=== PATIENT | male | born 1945 | race Caucasian/White ===

== ENCOUNTER 2020-01-26 11:41 | Inpatient (IN) | payer OTHER, MEDICARE ==
[~2020-01-26 11:41] MED LIST: Iopamidol 370 76% 100 ML VIAL ONE
[2020-01-26] MEDS ORDERED: Fentanyl 100 MCG/2 ML VIAL ONE ×3 (11:54→15:53)
[2020-01-26] MEDS ORDERED: Ondansetron PF 4 MG/2 ML Vial ONE ×2 (11:54→17:31)
[2020-01-26 12:34] LABS: #Basophils 0.1 thou/uL (0.0-0.2); #Eosinphils 0.1 thou/uL (0.0-0.7); #Lymphocytes 1.6 thou/uL (1.20-3.40); #Neutrophils 10.6 thou/uL (1.40-6.50); %Basophils 0.6 % (0.0-1.0); %Lymphocytes 12.2 % (21.0-51.0); %Monocytes 7.1 % (0.0-10.0); %Neutrophils 79.1 % (42.0-75.0); Hemoglobin 15.1 g/dL (14.0-18.0); Mean Corpuscular HGB CONC 34.1 g/dL (32.0-36.0); Mean Corpuscular Volume 90.7 fL (78.0-98.0); Mean Platelet Volume 9.3 fL (7.4-10.4); Platelet Count 119 thou/uL (130-400); RBC Distribution Width 12.1 % (11.5-14.5); Red Blood Cell (RBC) Count 4.87 mill/uL (4.70-6.10); White Blood Cell (WBC) Count 13.4 thou/uL (4.8-10.8)
[2020-01-26 12:40] LABS: ALT (SGPT) 28 U/L (8-55); AST (SGOT) 32 U/L (5-34); Albumin 4.3 g/dL (3.4-4.8); Alkaline Phosphatase 84 U/L (40-110); Anion Gap 17 mmol/L (10-20); BUN (Urea Nitrogen) 28 mg/dL (8.4-25.7); Bilirubin, Total 0.8 mg/dL (0.2-1.2); Calc. Creatinine Clearance 0 mL/min (70-130); Calcium 9.1 mg/dL (7.8-10.44); Carbon Dioxide 22 mmol/L (23-31); Chloride 104 mmol/L (98-107); Globulin 2.6 g/dL (2.4-3.5); Glucose 208 mg/dL (83-110); Protein, Total 6.9 g/dL (5.8-8.1); Sodium 139 mmol/L (136-145)
[2020-01-26 12:49] LABS: Platelet Morphology Comment Appears Decreased; RBC Morphology Normal
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
[2020-01-26 13:43] LABS: PTT 29.8 sec (22.9-36.1); Prothrombin Time 13.7 sec (12.0-14.7)
--- NOTE | 2020-01-26 13:52 | CT ---
CTA NECK WITH IV CONTRAST AND 3D POST PROCESSING: FINDINGS: There are vascular calcifications with moderate stenosis in the proximal right ICA and severe stenosi s in the proximal left ICA. There is normal flow in the left vertebral artery. There is absence of flow in multiple segments of the right vertebral artery in the neck with absence of flow at the origin. Soft tissue densities are seen in the right cervical transverse foramen. The re is hematoma in the right lower neck and mediastinum. Intracranial flow is demonstrated in the right vertebral artery. There are fractures involving the anterior inferior aspect of C6, spinous process of C6, right transv erse process of T7, and bilateral 1st and 2nd ribs. Right-sided facial fractures are present. IMPRESSION: Findings are highly suspicious for right vertebral artery injury. Discussed over the telephone with ER physician, Dr. Jv Hallman, at 1:17 p.m. ELMER CARDOZO POS: MARY
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
[2020-01-26] MEDS ORDERED: traMADol HCl 50 MG TAB PO PRN ×2 (19:11)
[2020-01-26] MEDS ORDERED: Acetaminophen 500 MG TAB PO SCH (19:15)
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
[2020-01-26] MEDS ORDERED: Acetaminophen 500 MG TAB ONE (19:31)
[2020-01-26] MEDS ORDERED: traMADol HCl 50 MG TAB ONE ×2 (19:31→19:37)
[2020-01-26 19:52] LABS: SARS-CoV-2 MS2 Positive; SARS-CoV-2 N Gene Negative; SARS-CoV-2 S Gene Negative; SARS-CoV-2 by NAA Not Detected (NotDetected); SARS-CoV-2 orf1ab Negative
[2020-01-27] MEDS ORDERED: traMADol HCl 50 MG TAB PO PRN ×2 (00:15)
[2020-01-27] MEDS ORDERED: Ondansetron ODT 4 MG TAB PO PRN (00:15)
[2020-01-27] MEDS ORDERED: Dextrose 5% in Water 1,000 ML IV PRN (00:15)
[2020-01-27] MEDS ORDERED: Cyclobenzaprine 10 MG TAB PO PRN (00:15)
[2020-01-27] MEDS ORDERED: Dextrose 50% Abboject 50 ML SYRINGE SLOW IVP PRN (00:15)
[2020-01-27] MEDS ORDERED: Morphine 2 MG/ML VIAL SLOW IVP PRN (00:15)
[2020-01-27] MEDS ORDERED: Ondansetron PF 4 MG/2 ML Vial IVP PRN (00:15)
[2020-01-27] MEDS ORDERED: Insulin Regular 300 UNITS/3 ML VIAL SC PRN (00:15)
[2020-01-27] MEDS ORDERED: Famotidine 20 MG TAB PO SCH (00:30)
[2020-01-27] MEDS ORDERED: traMADol HCl 50 MG TAB ONE (02:52)
[2020-01-27] MEDS ORDERED: Acetaminophen 500 MG TAB ONE (02:52)
[2020-01-27] MEDS: Acetaminophen 500 MG TAB PO SCH ×5 (02:57→23:55)
[2020-01-27] MEDS ORDERED: Famotidine 20 MG TAB ONE ×2 (03:01→08:41)
[2020-01-27] MEDS: Sodium Chloride 0.9% 1,000 ML IV SCH ×2 (03:06→08:50)
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
[2020-01-27 06:47] LABS: #Lymphocytes 0.9 thou/uL (1.20-3.40); #Monocytes 1.2 thou/uL (0.11-0.59); #Neutrophils 10.8 thou/uL (1.40-6.50); %Basophils 0.1 % (0.0-1.0); %Eosinophils 0.1 % (0.0-10.0); %Lymphocytes 6.9 % (21.0-51.0); %Monocytes 9.2 % (0.0-10.0); %Neutrophils 83.7 % (42.0-75.0); Hemoglobin 11.9 g/dL (14.0-18.0); Mean Corpuscular HGB CONC 33.8 g/dL (32.0-36.0); Mean Corpuscular Hemoglobin 31.1 pg (27.0-31.0); Mean Platelet Volume 8.8 fL (7.4-10.4); Platelet Count 108 thou/uL (130-400); RBC Distribution Width 11.8 % (11.5-14.5); Red Blood Cell (RBC) Count 3.84 mill/uL (4.70-6.10); White Blood Cell (WBC) Count 12.9 thou/uL (4.8-10.8)
[2020-01-27 07:06] LABS: Anion Gap 13 mmol/L (10-20); BUN (Urea Nitrogen) 31 mg/dL (8.4-25.7); Calc. Creatinine Clearance 102 mL/min (70-130); Calcium 8.6 mg/dL (7.8-10.44); Carbon Dioxide 26 mmol/L (23-31); Chloride 105 mmol/L (98-107); Glucose 152 mg/dL (83-110); Potassium 4.5 mmol/L (3.5-5.1); Sodium 139 mmol/L (136-145)
--- NOTE | 2020-01-27 08:16 | CT ---
PRELIMINARY REPORT/[facility]/EMERGENCY AFTER HOURS PROCEDURE EXAM: CT Head Without Intravenous Contrast. CLINICAL HISTORY: F/u small parafalcine SDH TECHNIQUE: Axial computed tomography images of the head/brain without intravenous contrast. COMPARISON: 01/26/2020 FINDINGS: No significant change in a tiny anterior pair of seeing subdural hematoma. The remainder of the brai n imaging is normal for age. No further evidence of acute hemorrhage, hematoma or infarction. No mass-effect or midline displacement. Minimal age-related atrophy. VENTRICLES: No hydrocephalus. ORBITS: The orbits are unremarkable. SINUSES AND MASTOIDS: The paranasal sinuses and mastoid air cells are clear. SOFT TISSUES: No significant facial or scalp soft tissue swelling evident. No radiopaque foreign body is seen. BONES: No acute skull fracture. IMPRESSION: There remains a tiny acute anterior parafalcine subdural hematoma, this has not changed.. ELECTRONICALLY SIGNED BY: Neha Fox DO Jan 27, 2020 4:41:53 AM [employer] This report is intended for review by the ordering physician only, in accordance of law. If you recei ve this report in error, please call [facility] at [phone]. FINAL REPORT Head CT without contrast: 01/22/2020 COMPARISON: 01/26/2020 HISTORY: Reevaluate intracranial hemorrhage seen on prior examination FINDINGS: There is partial opacification of the frontal sinus on the right with probable right orbita l floor fracture. No displaced calvarial fracture is seen. The prior examination demonstrated a focal area of increased density along the anterior aspect of the falx. On this examination that abnormality is not discretely visualized. There may be very small extra-axial hemorrhage in the lateral left frontal region within a cortical sulcus on axial image 18. IMPRESSION: Previously noted intracranial hemorrhage along the falx is not definitely visualized. Que stionable very tiny area of subarachnoid hemorrhage in the left frontal region. The preliminary report suggests that the previously noted parafalcine subdural hematoma is unchanged but it appears l ess conspicuous than on the 01/26/2020 examination. Transcribed Date/Time: 01/27/2020 9:31 AM
[2020-01-27] MEDS: Famotidine 20 MG TAB PO SCH ×2 (08:50→21:31)
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
[2020-01-27] MEDS ORDERED: Pseudoephedrine HCl 30 MG TAB PO PRN (15:01)
[2020-01-27] MEDS ORDERED: Amoxicillin/Potassium Clav 875 MG TAB PO SCH (15:15)
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
[2020-01-27] MEDS: Insulin Regular 300 UNITS/3 ML VIAL SC PRN (17:23)
[2020-01-27] MEDS: Amoxicillin/Potassium Clav 875 MG TAB PO SCH (21:31)
[2020-01-28] MEDS: Atenolol 25 MG TAB PO SCH (04:13)
[2020-01-28 05:30] LABS: #Lymphocytes 1.1 thou/uL (1.20-3.40); #Monocytes 1.7 thou/uL (0.11-0.59); #Neutrophils 15.4 thou/uL (1.40-6.50); %Basophils 0.1 % (0.0-1.0); %Eosinophils 0.1 % (0.0-10.0); %Lymphocytes 5.9 % (21.0-51.0); %Monocytes 9.2 % (0.0-10.0); %Neutrophils 84.7 % (42.0-75.0); Hemoglobin 11.7 g/dL (14.0-18.0); Mean Corpuscular HGB CONC 33.9 g/dL (32.0-36.0); Mean Corpuscular Volume 91.5 fL (78.0-98.0); Mean Platelet Volume 8.9 fL (7.4-10.4); Platelet Count 134 thou/uL (130-400); Red Blood Cell (RBC) Count 3.77 mill/uL (4.70-6.10); White Blood Cell (WBC) Count 18.2 thou/uL (4.8-10.8)
[2020-01-28] MEDS: Acetaminophen 500 MG TAB PO SCH ×3 (05:46→16:39)
[2020-01-28 05:53] LABS: Anion Gap 16 mmol/L (10-20); BUN (Urea Nitrogen) 27 mg/dL (8.4-25.7); Calc. Creatinine Clearance 104 mL/min (70-130); Calcium 9.2 mg/dL (7.8-10.44); Carbon Dioxide 24 mmol/L (23-31); Chloride 104 mmol/L (98-107); Glucose 170 mg/dL (83-110); Magnesium 1.8 mg/dL (1.6-2.6); Potassium 4.5 mmol/L (3.5-5.1); Sodium 139 mmol/L (136-145)
[2020-01-28 05:58] LABS: Troponin I 1.207 ng/mL (< 0.028)
[2020-01-28] MEDS ORDERED: Furosemide 40 MG/4 ML VIAL SLOW IVP SCH (07:45)
[2020-01-28] MEDS ORDERED: Furosemide 40 MG/4 ML VIAL ONE (07:49)
[2020-01-28] MEDS: Citalopram 20 MG TAB PO SCH (08:22)
[2020-01-28] MEDS: Aspirin 325 MG TAB PO SCH (08:22)
[2020-01-28] MEDS: Famotidine 20 MG TAB PO SCH ×2 (08:22→20:21)
[2020-01-28] MEDS: Amoxicillin/Potassium Clav 875 MG TAB PO SCH ×2 (08:22→20:22)
[2020-01-28] MEDS: Gabapentin 300 MG CAP PO SCH ×4 (08:23→20:21)
--- NOTE | 2020-01-28 08:40 | RAD ---
PORTABLE CHEST 1 VIEW: Date: 01/28/2020 Time: 0458 hours HISTORY: Tachycardia. Chest pain. COMPARISON: Previous day. FINDINGS/IMPRESSION: Changes of median sternotomy are again seen. The heart size is borderline. The lungs are well expande d without lobar consolidation, pneumothoraces, or pleural effusions. Opacity in the right upper chest shows interval improvement. Upper rib fractures are better visualized on the CT scan of 01/26/2020. POS: MARY
[2020-01-28 09:52] LABS: Troponin I 2.194 ng/mL (< 0.028)
[2020-01-28] MEDS: Diltiazem 125 MG in Sodium Chloride 0.9% 100 ML IVPB SCH (10:25)
[2020-01-28 13:32] LABS: Troponin I 3.009 ng/mL (< 0.028)
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
[2020-01-28] MEDS ORDERED: Digoxin 0.5 MG/2 ML AMP SLOW IVP SCH (17:15)
[2020-01-28] MEDS: Atorvastatin Calcium 40 MG TAB PO SCH (20:22)
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
[2020-01-29] MEDS: Acetaminophen 500 MG TAB PO SCH ×5 (00:06→21:54)
[2020-01-29] MEDS: Diltiazem 125 MG in Sodium Chloride 0.9% 100 ML IVPB SCH (02:10)
[2020-01-29] MEDS: Citalopram 20 MG TAB PO SCH (08:10)
[2020-01-29] MEDS: Gabapentin 300 MG CAP PO SCH ×4 (08:10→21:46)
[2020-01-29] MEDS: Aspirin 325 MG TAB PO SCH (08:10)
[2020-01-29] MEDS: Atenolol 25 MG TAB PO SCH (08:11)
[2020-01-29] MEDS: Lisinopril 2.5 MG TAB PO SCH (08:11)
[2020-01-29] MEDS: Amoxicillin/Potassium Clav 875 MG TAB PO SCH ×2 (08:11→21:46)
[2020-01-29] MEDS: Famotidine 20 MG TAB PO SCH ×2 (08:11→21:46)
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
[2020-01-29] MEDS: Insulin Regular 300 UNITS/3 ML VIAL SC PRN (17:04)
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
[2020-01-29] MEDS: Atorvastatin Calcium 40 MG TAB PO SCH (21:46)
[2020-01-30] MEDS: Diltiazem 125 MG in Sodium Chloride 0.9% 100 ML IVPB SCH ×2 (00:16→22:10)
[2020-01-30] MEDS: Acetaminophen 500 MG TAB PO SCH ×4 (06:11→23:03)
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
[2020-01-30 08:30] LABS: #Eosinphils 0.3 thou/uL (0.0-0.7); #Lymphocytes 1.5 thou/uL (1.20-3.40); #Monocytes 1.1 thou/uL (0.11-0.59); #Neutrophils 7.3 thou/uL (1.40-6.50); %Basophils 0.5 % (0.0-1.0); %Eosinophils 3.3 % (0.0-10.0); %Lymphocytes 14.4 % (21.0-51.0); %Monocytes 10.8 % (0.0-10.0); Hemoglobin 11.6 g/dL (14.0-18.0); Mean Corpuscular HGB CONC 34.6 g/dL (32.0-36.0); Mean Corpuscular Hemoglobin 32.4 pg (27.0-31.0); Mean Corpuscular Volume 93.8 fL (78.0-98.0); Mean Platelet Volume 8.1 fL (7.4-10.4); Platelet Count 137 thou/uL (130-400); RBC Distribution Width 12.3 % (11.5-14.5); Red Blood Cell (RBC) Count 3.58 mill/uL (4.70-6.10); White Blood Cell (WBC) Count 10.3 thou/uL (4.8-10.8)
[2020-01-30] MEDS: Gabapentin 300 MG CAP PO SCH ×4 (08:35→21:18)
[2020-01-30] MEDS: Lisinopril 2.5 MG TAB PO SCH (08:35)
[2020-01-30] MEDS: Citalopram 20 MG TAB PO SCH (08:35)
[2020-01-30] MEDS: Amoxicillin/Potassium Clav 875 MG TAB PO SCH ×2 (08:35→21:14)
[2020-01-30] MEDS: Atenolol 25 MG TAB PO SCH ×2 (08:35→08:39)
[2020-01-30] MEDS: Aspirin 325 MG TAB PO SCH (08:36)
[2020-01-30] MEDS: Famotidine 20 MG TAB PO SCH ×2 (08:36→21:14)
[2020-01-30 08:51] LABS: Anion Gap 12 mmol/L (10-20); BUN (Urea Nitrogen) 32 mg/dL (8.4-25.7); Calc. Creatinine Clearance 109 mL/min (70-130); Calcium 8.9 mg/dL (7.8-10.44); Carbon Dioxide 31 mmol/L (23-31); Chloride 102 mmol/L (98-107); Glucose 162 mg/dL (83-110); Magnesium 1.9 mg/dL (1.6-2.6); Phosphorus 2.6 mg/dL (2.3-4.7); Potassium 3.9 mmol/L (3.5-5.1); Sodium 141 mmol/L (136-145)
[2020-01-30] MEDS ORDERED: Carvedilol 6.25 MG TAB PO SCH (09:15)
[2020-01-30] MEDS ORDERED: Scopolamine 1.5 mg/72 hour Patch TD SCH (09:30)
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
[2020-01-30] MEDS ORDERED: Digoxin 0.5 MG/2 ML AMP SLOW IVP SCH (09:45)
[2020-01-30] MEDS ORDERED: Apixaban 5 MG TAB PO SCH (10:15)
[2020-01-30] MEDS ORDERED: Aspirin 325 MG TAB PO SCH (10:15)
[2020-01-30] MEDS: Insulin Regular 300 UNITS/3 ML VIAL SC PRN (11:24)
[2020-01-30] MEDS ORDERED: Magnesium 2 GM/50 ML 2 GM in Premix Bag 1 BAG IVPB SCH (11:45)
[2020-01-30] MEDS ORDERED: PHOS-NAK 1 PKT PACK PO SCH (11:45)
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
--- NOTE | 2020-01-30 14:19 | PQF ---
CLINICAL DOCUMENTATION CLARIFICATION FORM: Dear Dr. Sue SAMUEL PA-C Date: 01/30/2020 [id number] Please exercise your independent, professional judgment in responding to the clarification form. Clinical indicators are provided on the bottom of this form for your review. Please check appropriate box(es): CONGESTIVE HEART FAILURE: A. ACUITY [ ] Acute [ ] Acute on Chronic [ ] Chronic B. TYPE: [ ] Systolic / HFrEF [ ] Diastolic / HFpEF [ ] Combined Systolic / Diastolic [ ] Hypertensive Heart and Kidney disease [ ] Hypertensive Heart Disease [ ] Hypertensive Kidney Disease [ ] Other diagnosis [ ] Unable to determine In addition, please specify: Present on Admission (POA): [ ] Yes [ ] No [ ] Unable to determine For continuity of documentation, please document condition throughout progress notes and discharge summary. Thank You. To be completed by CDI/Coding staff for physician review: CLINICAL INDICATORS - SIGNS / SYMPTOMS / LABS / RESULTS AND LOCATION IN EMR EF is visually estimated at 25-30% ( Echo/ 01/27) Congestive heart failure exacerbation ( [facility]/ [place]) 01/27 Congestive heart failure exacerbation , improved ( PN/ [facility]) 01/28 01/25 BNP 206.5 01/27 BNP 1019.6 01/27 pulse 125 RISKS FACTORS / RESULTS AND LOCATION IN EMR History of CAD, hypertension ( [facility]/ [facility]) 01/25 TREATMENTS / RESULTS AND LOCATION IN EMR Supplemental Oxygen ( 01/27 present) Lasix IVP ( 01/27) Cardiology consult ( ) 01/27 Thank you! CDS Signature: Lesa Stubbs RN Phone #: [phone] Date: 01/30/2020 This is a permanent part of the Medical Record [facility]
[2020-01-30] MEDS: Carvedilol 6.25 MG TAB PO SCH ×2 (15:36→21:15)
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
[2020-01-30] MEDS: Saccharomyces boulardii 250 MG CAP PO SCH (21:14)
[2020-01-30] MEDS: Atorvastatin Calcium 40 MG TAB PO SCH (21:16)
[2020-01-30] MEDS: Apixaban 5 MG TAB PO SCH (21:16)
[2020-01-31] MEDS ORDERED: diphenhydrAMINE 50 MG CAP PO SCH (00:30)
[2020-01-31] MEDS ORDERED: Haloperidol Lactate 5 MG/ML VIAL SLOW IVP SCH (02:45)
[2020-01-31] MEDS ORDERED: Haloperidol Lactate 5 MG/ML VIAL SLOW IVP PRN (04:51)
[2020-01-31] MEDS ORDERED: Haloperidol Lactate 5 MG/ML VIAL ONE (04:59)
[2020-01-31 05:17] LABS: Anion Gap 14 mmol/L (10-20); BUN (Urea Nitrogen) 23 mg/dL (8.4-25.7); Calc. Creatinine Clearance 112 mL/min (70-130); Calcium 9.2 mg/dL (7.8-10.44); Carbon Dioxide 30 mmol/L (23-31); Chloride 100 mmol/L (98-107); Glucose 173 mg/dL (83-110); Magnesium 1.9 mg/dL (1.6-2.6); Potassium 4.1 mmol/L (3.5-5.1); Sodium 140 mmol/L (136-145)
[2020-01-31] MEDS ORDERED: Magnesium 2 GM/50 ML 2 GM in Premix Bag 1 BAG IVPB SCH (06:00)
[2020-01-31] MEDS ORDERED: Sodium Phosphate 15 MMOL in Sodium Chloride 0.9% 250 ML 250 ML IVPB SCH (06:00)
[2020-01-31] MEDS: Acetaminophen 500 MG TAB PO SCH (06:18)
[2020-01-31] MEDS: hydrALAZINE 20 MG/ML VIAL SLOW IVP PRN (06:30)
--- NOTE | 2020-01-31 07:32 | CT ---
PRELIMINARY REPORT/[facility]/EMERGENCY AFTER HOURS PROCEDURE EXAM: CT Head Without Intravenous Contrast. CLINICAL HISTORY: AMS s/p SDH//follow up scan TECHNIQUE: Axial computed tomography images of the head/brain without intravenous contrast. COMPARISON: January 29, 2020 FINDINGS: BRAIN: No acute intraparenchymal hemorrhage. No mass lesion. No CT evidence for acute territorial infarct. N o midline shift or extra-axial collection. VENTRICLES: No hydrocephalus. ORBITS: Orbital floor fracture on the right again noted. BONES: No acute skull fracture. IMPRESSION: No acute intracranial abnormality. ELECTRONICALLY SIGNED BY: Tunde Browne MD Jan 31, 2020 5:30:18 AM SUBSTATION OPERATOR This report is intended for review by the ordering physician only, in accordance of law. If you recei ve this report in error, please call [facility] at [phone]. FINAL REPORT Final interpretation Head CT without contrast: 01/31/2020 COMPARISON: 01/29/2020. HISTORY: Altered mental status, reevaluate intracranial hemorrhage. FINDINGS: There is an orbital floor fracture on the right with partial opacification of the right maxillary sin us. No additional acute osseous abnormality. Previously noted extra-axial hemorrhage is no longer present. No intracranial hemorrhage is evident o n this exam. IMPRESSION: No intracranial hemorrhage seen. Transcribed Date/Time: 01/31/2020 8:29 AM
[2020-01-31] MEDS ORDERED: Digoxin 0.5 MG/2 ML AMP SLOW IVP SCH (08:00)
[2020-01-31] MEDS ORDERED: Digoxin 0.25 MG TAB PO SCH (09:00)
[2020-01-31] MEDS ORDERED: Aspirin 325 MG TAB PO SCH (09:00)
[2020-01-31] MEDS ORDERED: Acetaminophen/Codeine 30-300mg Tablet PO PRN (09:21)
--- NOTE | 2020-01-31 09:21 | PQF ---
CLINICAL DOCUMENTATION CLARIFICATION FORM: Blayne Mckinney Date: 01/31/2020 0916 Please exercise your independent, professional judgment in responding to the clarification form. Clinical indicators are provided on the bottom of this form for your review. Please check appropriate box(es): CONGESTIVE HEART FAILURE: A. ACUITY [ X ] Acute [ ] Acute on Chronic [ ] Chronic B. TYPE: [ ] Systolic / HFrEF [ ] Diastolic / HFpEF [ XX ] Combined Systolic / Diastolic [ ] Hypertensive Heart and Kidney disease [ ] Hypertensive Heart Disease [ ] Hypertensive Kidney Disease [ ] Other diagnosis [ ] Unable to determine In addition, please specify: Present on Admission (POA): [X ] Yes [ ] No [ ] Unable to determine For continuity of documentation, please document condition throughout progress notes and discharge summary. Thank You. To be completed by CDI/Coding staff for physician review: CLINICAL INDICATORS - SIGNS / SYMPTOMS / LABS / RESULTS AND LOCATION IN EMR EF is visually estimated at 25-30% ( Echo/ 01/27) Congestive heart failure exacerbation ( [facility]/ [facility]) 01/27 Congestive heart failure exacerbation , improved ( PN/ [facility]) 01/28 01/25 BNP 206.5 01/27 BNP 1019.6 01/27 pulse 125 RISKS FACTORS / RESULTS AND LOCATION IN EMR History of CAD, hypertension ( [facility]/ H&P) 01/25 TREATMENTS / RESULTS AND LOCATION IN EMR Supplemental Oxygen ( 01/27 present) , Lasix IVP ( 01/27) , Cardiology consult ( ) 01/27 Thank you! CDS Signature: Lesa Stubbs RN Phone #: [phone] Date: 01/31/2020 This is a permanent part of the Medical Record [facility]
[2020-01-31] MEDS: Gabapentin 300 MG CAP PO SCH ×4 (09:47→20:52)
[2020-01-31] MEDS: Saccharomyces boulardii 250 MG CAP PO SCH ×2 (09:51→20:54)
[2020-01-31] MEDS: Atenolol 25 MG TAB PO SCH (09:52)
[2020-01-31] MEDS: Amoxicillin/Potassium Clav 875 MG TAB PO SCH ×2 (09:52→20:55)
[2020-01-31] MEDS: Citalopram 20 MG TAB PO SCH (09:52)
[2020-01-31] MEDS: Apixaban 5 MG TAB PO SCH ×2 (09:53→20:54)
[2020-01-31] MEDS: Lisinopril 2.5 MG TAB PO SCH (09:53)
[2020-01-31] MEDS: Famotidine 20 MG TAB PO SCH ×2 (09:53→20:54)
[2020-01-31] MEDS: Carvedilol 6.25 MG TAB PO SCH ×3 (09:54→20:54)
[2020-01-31] MEDS ORDERED: Aspirin Chewable 81 MG TAB ONE (10:00)
[2020-01-31] MEDS: Acetaminophen/Codeine 30-300mg Tablet PO SCH ×3 (10:01→20:56)
[2020-01-31] MEDS: Lidocaine 5% Patch TD SCH (10:01)
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
[2020-01-31] MEDS: Acetaminophen 325 MG TAB PO SCH ×2 (12:07→18:47)
[2020-01-31] MEDS: Insulin Regular 300 UNITS/3 ML VIAL SC PRN ×2 (12:11→18:52)
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
[2020-01-31] MEDS: Senokot S 8.6-50 MG TAB PO SCH (20:53)
[2020-01-31] MEDS: Atorvastatin Calcium 40 MG TAB PO SCH (20:55)
[2020-01-31] MEDS: Lidocaine Patch Removal 1 EACH TOP SCH (20:57)
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
[2020-02-01] MEDS: Acetaminophen 325 MG TAB PO SCH ×4 (00:44→16:46)
[2020-02-01 04:21] LABS: Anion Gap 16 mmol/L (10-20); BUN (Urea Nitrogen) 24 mg/dL (8.4-25.7); Calc. Creatinine Clearance 137 mL/min (70-130); Calcium 9.4 mg/dL (7.8-10.44); Carbon Dioxide 24 mmol/L (23-31); Chloride 101 mmol/L (98-107); Glucose 163 mg/dL (83-110); Magnesium 1.8 mg/dL (1.6-2.6); Phosphorus 3.3 mg/dL (2.3-4.7); Potassium 4.4 mmol/L (3.5-5.1); Sodium 137 mmol/L (136-145)
[2020-02-01] MEDS: Acetaminophen/Codeine 30-300mg Tablet PO SCH ×4 (04:48→20:40)
[2020-02-01] MEDS: Diltiazem 125 MG in Sodium Chloride 0.9% 100 ML IVPB SCH (05:58)
[2020-02-01] MEDS ORDERED: Ketamine 50 MG/ML (10ML VIAL) ONE (08:20)
[2020-02-01] MEDS ORDERED: Midazolam HCl 2 mg/2 ml Vial ONE (08:24)
[2020-02-01] MEDS ORDERED: PROPOFOL 20 ML ONE ×2 (08:31→09:18)
[2020-02-01] MEDS ORDERED: Benzocaine 20% Spray 60 ML CAN ONE (08:33)
[2020-02-01] MEDS ORDERED: Digoxin 0.25 MG TAB PO SCH (09:00)
[2020-02-01] MEDS ORDERED: Lidocaine 1% PF 5 ML VIAL ONE (09:18)
[2020-02-01] MEDS ORDERED: Diltiazem 125 MG in Sodium Chloride 0.9% 100 ML IVPB SCH (09:19)
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
[2020-02-01] MEDS ORDERED: Amiodarone 450 MG in Dextrose 5% in Water 250 ML IVPB SCH (09:30)
[2020-02-01] MEDS: Senokot S 8.6-50 MG TAB PO SCH ×2 (10:29→20:38)
[2020-02-01] MEDS: Amoxicillin/Potassium Clav 875 MG TAB PO SCH ×2 (10:29→20:38)
[2020-02-01] MEDS: Atenolol 25 MG TAB PO SCH (10:30)
[2020-02-01] MEDS: Aspirin Chewable 81 MG TAB PO SCH (10:31)
[2020-02-01] MEDS: Famotidine 20 MG TAB PO SCH ×2 (10:31→20:38)
[2020-02-01] MEDS: Saccharomyces boulardii 250 MG CAP PO SCH ×2 (10:31→20:38)
[2020-02-01] MEDS: Carvedilol 6.25 MG TAB PO SCH ×2 (10:32→14:19)
[2020-02-01] MEDS: Polyethylene Glycol 3350 17 GM Packet PO SCH (10:33)
[2020-02-01] MEDS: Citalopram 20 MG TAB PO SCH (10:33)
[2020-02-01] MEDS: Apixaban 5 MG TAB PO SCH ×2 (10:33→20:38)
[2020-02-01] MEDS: Lisinopril 2.5 MG TAB PO SCH (10:33)
[2020-02-01] MEDS: Lidocaine 5% Patch TD SCH (10:33)
[2020-02-01] MEDS: Gabapentin 300 MG CAP PO SCH ×4 (10:42→20:39)
[2020-02-01] MEDS ORDERED: Carvedilol 6.25 MG TAB PO SCH (17:00)
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
[2020-02-01] MEDS: Insulin Regular 300 UNITS/3 ML VIAL SC PRN (18:41)
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
[2020-02-01] MEDS: Atorvastatin Calcium 40 MG TAB PO SCH (20:38)
[2020-02-01] MEDS: Lidocaine Patch Removal 1 EACH TOP SCH (20:39)
[2020-02-02] MEDS: Acetaminophen 325 MG TAB PO SCH ×5 (00:37→22:15)
[2020-02-02] MEDS: Acetaminophen/Codeine 30-300mg Tablet PO SCH ×4 (03:42→20:52)
[2020-02-02] MEDS: hydrALAZINE 20 MG/ML VIAL SLOW IVP PRN ×2 (04:02→16:58)
[2020-02-02 04:39] LABS: #Basophils 0.1 thou/uL (0.0-0.2); #Eosinphils 0.5 thou/uL (0.0-0.7); #Lymphocytes 1.6 thou/uL (1.20-3.40); #Monocytes 1.9 thou/uL (0.11-0.59); #Neutrophils 10.6 thou/uL (1.40-6.50); %Basophils 0.6 % (0.0-1.0); %Eosinophils 3.1 % (0.0-10.0); %Lymphocytes 11.2 % (21.0-51.0); %Monocytes 13.2 % (0.0-10.0); %Neutrophils 71.9 % (42.0-75.0); Hemoglobin 13.1 g/dL (14.0-18.0); Mean Corpuscular HGB CONC 32.5 g/dL (32.0-36.0); Mean Corpuscular Hemoglobin 30.8 pg (27.0-31.0); Mean Corpuscular Volume 94.8 fL (78.0-98.0); Mean Platelet Volume 8.4 fL (7.4-10.4); Platelet Count 186 thou/uL (130-400); RBC Distribution Width 13.1 % (11.5-14.5); Red Blood Cell (RBC) Count 4.25 mill/uL (4.70-6.10); White Blood Cell (WBC) Count 14.7 thou/uL (4.8-10.8)
[2020-02-02 05:02] LABS: Anion Gap 14 mmol/L (10-20); BUN (Urea Nitrogen) 22 mg/dL (8.4-25.7); Calc. Creatinine Clearance 119 mL/min (70-130); Calcium 9.1 mg/dL (7.8-10.44); Carbon Dioxide 27 mmol/L (23-31); Chloride 99 mmol/L (98-107); Glucose 141 mg/dL (83-110); Magnesium 1.8 mg/dL (1.6-2.6); Phosphorus 3.1 mg/dL (2.3-4.7); Sodium 136 mmol/L (136-145)
[2020-02-02] MEDS ORDERED: Amiodarone 450 MG in Dextrose 5% in Water 250 ML IVPB SCH (06:00)
--- NOTE | 2020-02-02 07:16 | EKG ---
Test Reason : POST CARDIOVERSION Blood Pressure : / mmHG Vent. Rate : 072 BPM Atrial Rate : 072 BPM P-R Int : 132 ms QRS Dur : 104 ms QT Int : 388 ms P-R-T Axes : 051 018 146 degrees QTc Int : 424 ms Sinus rhythm with sinus arrhythmia with occasional Premature ventricular complexes Abnormal ECG When compared with ECG of 28-JAN-2020 04:46, (Unconfirmed) Sinus rhythm has replaced Atrial fibrillation Vent. rate has decreased BY 54 BPM T wave inversion no longer evident in Inferior leads T wave inversion more evident in Anterior leads T wave inversion less evident in Lateral leads Confirmed by DR. Ramone CRUZ ([id number]) on 02/02/2020 7:15:47 AM Referred By: GIULIA Confirmed By:DR. Ramone CRUZ
[2020-02-02] MEDS ORDERED: PHOS-NAK 1 PKT PACK PO SCH (08:00)
[2020-02-02] MEDS ORDERED: Magnesium 2 GM/50 ML 2 GM in Premix Bag 1 BAG IVPB SCH (08:00)
[2020-02-02] MEDS: Amlodipine 5 MG TAB PO SCH (09:40)
[2020-02-02] MEDS: Apixaban 5 MG TAB PO SCH ×2 (09:41→20:48)
[2020-02-02] MEDS: Saccharomyces boulardii 250 MG CAP PO SCH ×2 (09:41→20:47)
[2020-02-02] MEDS: Senokot S 8.6-50 MG TAB PO SCH ×2 (09:41→20:47)
[2020-02-02] MEDS: Carvedilol 6.25 MG TAB PO SCH ×2 (09:42→16:53)
[2020-02-02] MEDS: Gabapentin 300 MG CAP PO SCH ×4 (09:42→20:46)
[2020-02-02] MEDS: Lidocaine 5% Patch TD SCH (09:42)
[2020-02-02] MEDS: Lisinopril 20 MG TAB PO SCH (09:42)
[2020-02-02] MEDS: Amoxicillin/Potassium Clav 875 MG TAB PO SCH ×2 (09:43→20:48)
[2020-02-02] MEDS: Aspirin Chewable 81 MG TAB PO SCH (09:43)
[2020-02-02] MEDS: Famotidine 20 MG TAB PO SCH ×2 (09:43→20:47)
[2020-02-02] MEDS: Polyethylene Glycol 3350 17 GM Packet PO SCH (09:43)
[2020-02-02] MEDS: Citalopram 20 MG TAB PO SCH (09:43)
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
[2020-02-02] MEDS: Insulin Regular 300 UNITS/3 ML VIAL SC PRN ×2 (12:48→18:46)
[2020-02-02] MEDS: Amiodarone 200 MG TAB PO SCH ×2 (12:48→20:48)
--- NOTE | 2020-02-02 13:45 | EKG ---
Test Reason : STAT AFIB Blood Pressure : / mmHG Vent. Rate : 126 BPM Atrial Rate : 101 BPM P-R Int : 000 ms QRS Dur : 106 ms QT Int : 312 ms P-R-T Axes : 000 038 225 degrees QTc Int : 451 ms Atrial fibrillation with rapid ventricular response with premature ventricular or aberrantly conducte d complexes Incomplete left bundle branch block Abnormal ECG No previous ECGs available Confirmed by MELANIE LUONG (2) on 02/02/2020 1:45:04 PM Referred By: IVIS Confirmed By:MELANIE LUONG
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
[2020-02-02] MEDS: Atorvastatin Calcium 40 MG TAB PO SCH (20:48)
[2020-02-02] MEDS: Lidocaine Patch Removal 1 EACH TOP SCH (20:48)
[2020-02-03] MEDS: Acetaminophen/Codeine 30-300mg Tablet PO SCH ×4 (03:26→20:38)
[2020-02-03 04:38] LABS: #Basophils 0.1 thou/uL (0.0-0.2); #Eosinphils 0.5 thou/uL (0.0-0.7); #Lymphocytes 1.6 thou/uL (1.20-3.40); #Monocytes 1.9 thou/uL (0.11-0.59); %Basophils 0.3 % (0.0-1.0); %Eosinophils 3.1 % (0.0-10.0); %Lymphocytes 9.7 % (21.0-51.0); %Monocytes 11.8 % (0.0-10.0); Hemoglobin 13.6 g/dL (14.0-18.0); Mean Corpuscular HGB CONC 32.8 g/dL (32.0-36.0); Mean Corpuscular Hemoglobin 30.7 pg (27.0-31.0); Mean Corpuscular Volume 93.6 fL (78.0-98.0); Mean Platelet Volume 8.2 fL (7.4-10.4); Platelet Count 213 thou/uL (130-400); RBC Distribution Width 13.3 % (11.5-14.5); Red Blood Cell (RBC) Count 4.43 mill/uL (4.70-6.10)
[2020-02-03 04:58] LABS: Anion Gap 17 mmol/L (10-20); BUN (Urea Nitrogen) 23 mg/dL (8.4-25.7); Calc. Creatinine Clearance 108 mL/min (70-130); Calcium 9.3 mg/dL (7.8-10.44); Carbon Dioxide 27 mmol/L (23-31); Chloride 99 mmol/L (98-107); Glucose 149 mg/dL (83-110); Magnesium 2.1 mg/dL (1.6-2.6); Phosphorus 3.3 mg/dL (2.3-4.7); Sodium 139 mmol/L (136-145)
[2020-02-03] MEDS: Acetaminophen 325 MG TAB PO SCH ×3 (05:59→17:18)
[2020-02-03] MEDS ORDERED: PHOS-NAK 1 PKT PACK PO SCH (08:15)
[2020-02-03] MEDS: Famotidine 20 MG TAB PO SCH ×2 (08:40→20:30)
[2020-02-03] MEDS: Carvedilol 6.25 MG TAB PO SCH ×2 (08:41→16:23)
[2020-02-03] MEDS: Amoxicillin/Potassium Clav 875 MG TAB PO SCH (08:41)
[2020-02-03] MEDS: Saccharomyces boulardii 250 MG CAP PO SCH ×2 (08:41→20:30)
[2020-02-03] MEDS: Gabapentin 300 MG CAP PO SCH ×4 (08:41→20:37)
[2020-02-03] MEDS: Lisinopril 20 MG TAB PO SCH (08:41)
[2020-02-03] MEDS: Aspirin Chewable 81 MG TAB PO SCH (08:41)
[2020-02-03] MEDS: Amiodarone 200 MG TAB PO SCH ×3 (08:42→20:31)
[2020-02-03] MEDS: Apixaban 5 MG TAB PO SCH ×2 (08:42→20:30)
[2020-02-03] MEDS: Citalopram 20 MG TAB PO SCH (08:42)
[2020-02-03] MEDS: Amlodipine 5 MG TAB PO SCH (08:42)
[2020-02-03] MEDS: Polyethylene Glycol 3350 17 GM Packet PO SCH (08:43)
[2020-02-03] MEDS: Lidocaine 5% Patch TD SCH (08:43)
[2020-02-03] MEDS: Senokot S 8.6-50 MG TAB PO SCH ×2 (08:52→20:31)
[2020-02-03] MEDS: Insulin Regular 300 UNITS/3 ML VIAL SC PRN ×2 (12:06→17:13)
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
--- NOTE | 2020-02-03 14:51 | EKG ---
Test Reason : Blood Pressure : / mmHG Vent. Rate : 048 BPM Atrial Rate : 048 BPM P-R Int : 142 ms QRS Dur : 100 ms QT Int : 482 ms P-R-T Axes : 046 026 046 degrees QTc Int : 430 ms Sinus bradycardia with Premature atrial complexes Otherwise normal ECG Confirmed by ASHLIE MCARTHUR, DOMINIK ([id number]), tape editor YFN DOMÍNGUEZ ([id number]) on 02/03/2020 2:51:13 PM Referred By: Confirmed By:DOMINIK DAILEY MD
[2020-02-03] MEDS: Atorvastatin Calcium 40 MG TAB PO SCH (20:30)
[2020-02-03] MEDS: Lidocaine Patch Removal 1 EACH TOP SCH (20:53)
[2020-02-04 04:21] LABS: Anion Gap 17 mmol/L (10-20); BUN (Urea Nitrogen) 23 mg/dL (8.4-25.7); Calc. Creatinine Clearance 107 mL/min (70-130); Calcium 8.9 mg/dL (7.8-10.44); Carbon Dioxide 24 mmol/L (23-31); Chloride 101 mmol/L (98-107); Glucose 158 mg/dL (83-110); Phosphorus 3.2 mg/dL (2.3-4.7); Potassium 4.6 mmol/L (3.5-5.1); Sodium 137 mmol/L (136-145)
[2020-02-04 04:22] LABS: Band 2 % (5-11); Eosinophils 2 % (0-10); Hemoglobin 13.8 g/dL (14.0-18.0); Lymphocytes 7 % (21-51); MDiff Complete? YES; Mean Corpuscular HGB CONC 32.7 g/dL (32.0-36.0); Mean Corpuscular Hemoglobin 30.8 pg (27.0-31.0); Mean Corpuscular Volume 94.1 fL (78.0-98.0); Mean Platelet Volume 9.2 fL (7.4-10.4); Monocytes 10 % (0-10); Neutrophil 78 % (42-75); Platelet Count 191 thou/uL (130-400); RBC Distribution Width 13.5 % (11.5-14.5); Reactive Lymphocytes 1 % (0-10); Red Blood Cell (RBC) Count 4.47 mill/uL (4.70-6.10); White Blood Cell (WBC) Count 14.1 thou/uL (4.8-10.8)
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
[2020-02-04] MEDS: Acetaminophen 325 MG TAB PO SCH ×4 (06:08→18:13)
[2020-02-04] MEDS: Acetaminophen/Codeine 30-300mg Tablet PO SCH ×4 (06:09→19:50)
[2020-02-04] MEDS ORDERED: PHOS-NAK 1 PKT PACK PO SCH (08:45)
[2020-02-04] MEDS: Famotidine 20 MG TAB PO SCH ×2 (10:42→20:36)
[2020-02-04] MEDS: Apixaban 5 MG TAB PO SCH ×2 (10:42→20:36)
[2020-02-04] MEDS: Amlodipine 5 MG TAB PO SCH (10:43)
[2020-02-04] MEDS: Polyethylene Glycol 3350 17 GM Packet PO SCH (10:43)
[2020-02-04] MEDS: Gabapentin 300 MG CAP PO SCH ×4 (10:43→20:36)
[2020-02-04] MEDS: Senokot S 8.6-50 MG TAB PO SCH ×2 (10:43→20:37)
[2020-02-04] MEDS: Carvedilol 6.25 MG TAB PO SCH ×2 (10:44→18:05)
[2020-02-04] MEDS: Citalopram 20 MG TAB PO SCH (10:44)
[2020-02-04] MEDS: Amiodarone 200 MG TAB PO SCH ×3 (10:44→20:36)
[2020-02-04] MEDS: Aspirin Chewable 81 MG TAB PO SCH (10:44)
[2020-02-04] MEDS: Lisinopril 20 MG TAB PO SCH (10:44)
[2020-02-04] MEDS: Lidocaine 5% Patch TD SCH (10:46)
[2020-02-04] MEDS: Insulin Regular 300 UNITS/3 ML VIAL SC PRN ×2 (12:39→18:06)
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
[2020-02-04] MEDS: Atorvastatin Calcium 40 MG TAB PO SCH (20:37)
[2020-02-04] MEDS: Lidocaine Patch Removal 1 EACH TOP SCH (20:37)
[2020-02-05] MEDS: Acetaminophen 325 MG TAB PO SCH ×5 (00:05→20:38)
[2020-02-05] MEDS: Acetaminophen/Codeine 30-300mg Tablet PO SCH ×3 (00:14→16:11)
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
[2020-02-05] MEDS: Citalopram 20 MG TAB PO SCH (08:07)
[2020-02-05] MEDS: Gabapentin 300 MG CAP PO SCH ×4 (08:07→20:40)
[2020-02-05] MEDS: Carvedilol 6.25 MG TAB PO SCH ×2 (08:08→16:13)
[2020-02-05] MEDS: Famotidine 20 MG TAB PO SCH ×2 (08:08→20:39)
[2020-02-05] MEDS: Apixaban 5 MG TAB PO SCH ×2 (08:08→20:39)
[2020-02-05] MEDS: Lisinopril 20 MG TAB PO SCH (08:08)
[2020-02-05] MEDS: Aspirin Chewable 81 MG TAB PO SCH (08:08)
[2020-02-05] MEDS: Amlodipine 5 MG TAB PO SCH (08:09)
[2020-02-05] MEDS: Amiodarone 200 MG TAB PO SCH ×3 (08:10→20:39)
[2020-02-05] MEDS: Lidocaine 5% Patch TD SCH (08:10)
[2020-02-05] MEDS: Polyethylene Glycol 3350 17 GM Packet PO SCH (08:11)
[2020-02-05] MEDS: Senokot S 8.6-50 MG TAB PO SCH ×2 (08:12→20:41)
[2020-02-05 13:14] VITALS: BMI 27.1
[2020-02-05] MEDS: Insulin Regular 300 UNITS/3 ML VIAL SC PRN ×2 (14:02→17:28)
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
[2020-02-05] MEDS: Atorvastatin Calcium 40 MG TAB PO SCH (20:39)
[2020-02-05] MEDS: Lidocaine Patch Removal 1 EACH TOP SCH (21:07)
--- NOTE | 2020-02-05 23:21 | PRG ---
DATE OF SERVICE: 02/05/2020 SUBJECTIVE: Patient was seen during evening rounds, resting comfortably in no acute distress. The patient did have a run of ventricular tachycardia early this morning while he was on the toilet. The patient did not have a syncopal episode. OBJECTIVE: VITAL SIGNS: Have been stable. The patient has remained afebrile. GENERAL: Patient's pain has been well controlled. Urinary output has been adequate for patient's age and weight. PLAN: Unchanged. The patient is pending placement to [facility] in [place]. Job ID: [id number]
[2020-02-06] MEDS: Acetaminophen/Codeine 30-300mg Tablet PO SCH ×5 (02:34→20:31)
[2020-02-06] MEDS: hydrALAZINE 20 MG/ML VIAL SLOW IVP PRN (04:32)
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
[2020-02-06] MEDS: Acetaminophen 325 MG TAB PO SCH ×4 (05:41→17:41)
[2020-02-06] MEDS ORDERED: Amlodipine 5 MG TAB PO SCH (08:19)
[2020-02-06] MEDS ORDERED: Lisinopril 20 MG TAB PO SCH (08:25)
[2020-02-06] MEDS ORDERED: Amlodipine 10 MG TAB PO SCH (09:00)
[2020-02-06] MEDS: Aspirin Chewable 81 MG TAB PO SCH (09:05)
[2020-02-06] MEDS: Senokot S 8.6-50 MG TAB PO SCH ×2 (09:05→20:28)
[2020-02-06] MEDS: Famotidine 20 MG TAB PO SCH ×2 (09:05→20:27)
[2020-02-06] MEDS: Citalopram 20 MG TAB PO SCH (09:06)
[2020-02-06] MEDS: Carvedilol 6.25 MG TAB PO SCH ×2 (09:06→17:24)
[2020-02-06] MEDS: Apixaban 5 MG TAB PO SCH ×2 (09:08→20:27)
[2020-02-06] MEDS: Gabapentin 300 MG CAP PO SCH ×4 (09:08→20:26)
[2020-02-06] MEDS: Amiodarone 200 MG TAB PO SCH ×3 (09:08→20:27)
[2020-02-06] MEDS: Lidocaine 5% Patch TD SCH (09:08)
[2020-02-06] MEDS: Polyethylene Glycol 3350 17 GM Packet PO SCH (10:20)
[2020-02-06] MEDS: Insulin Regular 300 UNITS/3 ML VIAL SC PRN ×2 (12:20→17:27)
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
[2020-02-06 19:58] VITALS: BP 114/56; TEMP 97.7
[2020-02-06] MEDS: Atorvastatin Calcium 40 MG TAB PO SCH (20:27)
[2020-02-06] MEDS: Lidocaine Patch Removal 1 EACH TOP SCH (20:28)
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
--- NOTE | 2020-02-08 15:57 | CCLSPC ---
PROCEDURE: Cardioversion. INDICATION FOR PROCEDURE: Atrial fibrillation with rapid ventricular response, poorly controlled with medical management. He was advised to undergo electrical cardioversion after he underwent a transesophageal echocardiogram to rule out evidence of intracardiac thrombi or masses. PROCEDURE IN DETAIL: He was taken to the recovery area where he underwent the transesophageal echocardiogram prior to undergoing electrical cardioversion of atrial fibrillation. After there was no evidence of left atrial or left atrial appendage thrombus with one attempt with 300 joules, the patient was successfully converted back to sinus rhythm with a heart rate in the 70s. He did have frequent PVCs and PACs after the cardioversion, but did remain in sinus rhythm. There were no complications or difficulties encountered. Job ID: [id number]
[2020-02-10] MEDS ORDERED: Amiodarone 200 MG TAB PO SCH (09:00)
[2020-02-25] MEDS ORDERED: Amiodarone 200 MG TAB PO SCH (09:00)
== END 2020-02-06 21:15 | DRG 82 ==
LOC: ERS 11:41 → ERHOLD 13:30 → SURG B 01-27 10:18 → 2NO 01-28 06:43
PROVIDERS: ADMIT Specialist; ATTEND Specialist
PROC: B24BZZ4 Ultrasonography of Heart with Aorta, Transesophageal (ICD-10-PCS; principal; 2020-02-01)
PROC: 5A2204Z Restoration of Cardiac Rhythm, Single (ICD-10-PCS; 2020-02-01)
DX: S06.5X9A Traumatic subdural hemorrhage with loss of consciousness of unspecified duration, initial encounter (principal); I77.74 Dissection of vertebral artery; I50.43 Acute on chronic combined systolic (congestive) and diastolic (congestive) heart failure; S12.600A Unspecified displaced fracture of seventh cervical vertebra, initial encounter for closed fracture; S22.069A Unspecified fracture of T7-T8 vertebra, initial encounter for closed fracture; S22.43XA Multiple fractures of ribs, bilateral, initial encounter for closed fracture; S12.500A Unspecified displaced fracture of sixth cervical vertebra, initial encounter for closed fracture; I48.92 Unspecified atrial flutter; I47.2 Ventricular tachycardia; Z20.828 Contact with and (suspected) exposure to other viral communicable diseases; Z88.5 Allergy status to narcotic agent; Z88.8 Allergy status to other drugs, medicaments and biological substances; V59.9XXA Occupant (driver) (passenger) of pick-up truck or van injured in unspecified traffic accident, initial encounter; F03.90 Unspecified dementia, unspecified severity, without behavioral disturbance, psychotic disturbance, mood disturbance, and anxiety; E11.9 Type 2 diabetes mellitus without complications; R40.2413 Glasgow coma scale score 13-15, at hospital admission; S06.6X9A Traumatic subarachnoid hemorrhage with loss of consciousness of unspecified duration, initial encounter; E78.5 Hyperlipidemia, unspecified; S02.31XA Fracture of orbital floor, right side, initial encounter for closed fracture; S01.81XA Laceration without foreign body of other part of head, initial encounter; S02.40EA Zygomatic fracture, right side, initial encounter for closed fracture; I49.5 Sick sinus syndrome; I11.0 Hypertensive heart disease with heart failure; S40.011A Contusion of right shoulder, initial encounter; R41.0 Disorientation, unspecified; E83.42 Hypomagnesemia; E83.39 Other disorders of phosphorus metabolism; I48.91 Unspecified atrial fibrillation; I25.2 Old myocardial infarction; Z95.1 Presence of aortocoronary bypass graft; Z79.84 Long term (current) use of oral hypoglycemic drugs; Z79.899 Other long term (current) drug therapy
CPT/HCPCS: 36415; 36416; 70450; 70486; 70498; 71045; 71260; 72125; 74177; 80048; 80053; 83735; 83880; 84100; 84484; 85007; 85025; 85027; 85610; 85730; 87635; 92960; 93005; 93010; 93306; 93312; 94640; 96374; 96375; 96376; G0390; J0282; J0360; J1160; J1630; J1815; J1940; J2250; J2405; J2704; J3010; J3475; J3490; J7050; J7070; J7620; Q0162; Q9967; U0003